=== PATIENT | female | born 1980 | race Caucasian/White ===

== ENCOUNTER → 2019-09-11 | Day surgery (SDC) | payer OTHER ==
[~2019-09-11] MED LIST: EFFEXOR XR150 MG PO; FENTANYL CITRATE/PF 100MCG/2 ML INJ ONE; INVEGA SUS234 MG/1.5 INJ; LEVOTHYROXINE25 MCG PO; MIDAZOLAM HCL 2 MG/2 ML VIAL ONE; OMEPRAZOLE40 MG PO; ONDANSETRON HCL INJ 2MG/ML 2ML 2 MG/ML VIAL ONE; PROPOFOL IV EMULSION 10 MG/ML 50 ML VIAL ONE; XANAX XR1 MG PO
--- OUTSIDE RECORDS SUMMARY | 2019-09-11 05:52 | XMS REPORT ---
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 Allergies, Adverse Reactions, Alerts Allergy Name Allergy Type Status Severity Reaction(s) Onset Date Inactive Date Treating Clinician Comments bupropion HCl DA Active MO 2011-11-15 00:00:00 morphine DA Active SV 2011-11-15 00:00:00 Medications This patient has no known medications. Results Test Description Test Time Test Comments Text Results Atomic Results Result Comments - CT ABD PELVIS W/CONT 2019-04-23 11:39:00 Name: JOSÉ LUIS CARPENTER [facility] : 1980 Age/S: 39 / F [address] [facility] Unit #: [id number] Loc: [place] [address] Phys: Hayes Hannah MD Acct: [id number] Dis Date: Status: REG CLI PHONE #: [phone] Exam Date: 04/23/2019 1116 FAX #: [phone] Reason: R10.84 NAUSEA VOMITING EXAMS: CPT CODE: [id number] CT ABD PELVIS W/CONT 32994 REASON FOR EXAM: R10.84 NAUSEA VOMITING EXAM ORDER DATE: 04/23/2019 10:22 AM Ordering MNicky: Hayes Hannah MD PROCEDURE: - CT ABD PELVIS W/CONT contrast-enhanced axial CT images were acquired through the abdomen/pelvis at 5 mm intervals. Sagittal and coronal reformatted images were generated. Automated exposure control was utilized for this reduction. Phases of contrast: venous and delayed COMPARISON: None FINDINGS: Visualized thorax: Normal Hepatobiliary system: Hepatic steatosis. Prior cholecystectomy. Pancreas: Mild fatty replacement Spleen: Normal Adrenal glands: Normal Genitourinary system: Normal Gastrointestinal tract and appendix: Normal Abdominal vascular structures: Normal Peritoneum and retroperitoneum: No free fluid or free air. No omental or mesenteric masses. No abnormal lymph nodes. Musculoskeletal structures and abdominal wall: Fat-containing umbilical hernia. Bones are within normal limits. IMPRESSION: No acute intra-abdominal process. Hepatic steatosis. Prior cholecystectomy. PAGE 1 Signed Report (CONTINUED) Name: JOSÉ LUIS CARPENTER [facility] : 1980 Age/S: 39 / F [address] [facility] Unit #: [id number] Loc: [place] [address] Phys: Hayes Hannah MD Acct: [id number] Dis Date: Status: REG CLI PHONE #: [phone] Exam Date: 04/23/2019 1116 FAX #: [phone] Reason: R10.84 NAUSEA VOMITING EXAMS: CPT CODE: [id number] CT ABD PELVIS W/CONT 51429 <Continued> at 1139 Reported and signed by: Jaylon Moe MD CC: Hayes Hannah MD Technologist:Elaine Trejo RT(R),CT CTDI: DLP: Trnscb Date/Time: 04/23/2019 (5963) [email or web address] Orig Print D/T: S: 04/23/2019 (5001) PAGE 2 Signed Report
[2019-09-11 07:35] VITALS: BP 137/67
== END | disposition home or self-care (01) ==
LOC: OR 05:50
PROVIDERS: ATTEND Internal Medicine Gastroenterology
DX: K29.30 Chronic superficial gastritis without bleeding (principal); K21.9 Gastro-esophageal reflux disease without esophagitis; K44.9 Diaphragmatic hernia without obstruction or gangrene; K31.9 Disease of stomach and duodenum, unspecified; E03.9 Hypothyroidism, unspecified; F17.210 Nicotine dependence, cigarettes, uncomplicated; Z71.3 Dietary counseling and surveillance; Z68.41 Body mass index [BMI] 40.0-44.9, adult; Z98.84 Bariatric surgery status
CPT/HCPCS: 43239; 88305; 88312; J2250; J2405; J2704; J3010; 43235